=== PATIENT | female | born 1995 | race American Indian/Alaskan Native ===

== ENCOUNTER 2021-01-04 17:15 | Emergency (ER) | payer OTHER, MEDICAID ==
[2021-01-04] MEDS ORDERED: Lidocaine 1% with EPINEPHrine 1:200,000 30 ML SDV INJECT ONE (17:38)
[2021-01-04] MEDS ORDERED: Acetaminophen/HYDROcodone 325-5 MG Tab ONE (18:00)
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
== END 2021-01-04 19:40 | disposition home or self-care (01) ==
LOC: LB.ED 17:15
DX: S42.025A Nondisplaced fracture of shaft of left clavicle, initial encounter for closed fracture (principal); S01.01XA Laceration without foreign body of scalp, initial encounter; V86.99XA Unspecified occupant of other special all-terrain or other off-road motor vehicle injured in nontraffic accident, initial encounter; Y92.410 Unspecified street and highway as the place of occurrence of the external cause
CPT/HCPCS: 12002; 36415; 70450; 71250; 72125; 73000; 74176; 80053; 85025; 99284; A9270

== ENCOUNTER 2022-07-30 20:43 | Emergency (ER) | payer MEDICAID ==
[2022-07-30] MEDS: Metoprolol Tartrate 50 MG Tab PO ONE (21:35)
[2022-07-30] MEDS: Metoprolol Tartrate 50 MG Tab ONE (21:48)
== END 2022-07-30 22:20 | disposition home or self-care (01) ==
LOC: LB.ED 20:43 → SUPCPDRO 20:43 → LB.ED 22:20
DX: I10 Essential (primary) hypertension (principal)
CPT/HCPCS: 36415; 80053; 81001; 84550; 85025; 85610; 85730; 99283; A9270-GY

== ENCOUNTER 2022-07-31 22:20 | Emergency (ER) | payer MEDICAID ==
[2022-07-31] MEDS: LORazepam 1 MG Tab PO ONE (22:44)
[2022-07-31] MEDS: Aspirin 81 MG Tab.Chew PO ONE (22:54)
[2022-07-31] MEDS: LORazepam 1 MG Tab ONE (22:55)
[2022-07-31] MEDS: Metoprolol Tartrate 50 MG Tab PO ONE (23:02)
[2022-07-31] MEDS: Metoprolol Tartrate 50 MG Tab ONE (23:09)
[2022-07-31] MEDS ORDERED: LORazepam 1 MG Tab ONE ×2 (23:30→23:49)
== END 2022-07-31 23:45 | disposition home or self-care (01) ==
LOC: LB.ED 22:20
DX: I10 Essential (primary) hypertension (principal); F41.9 Anxiety disorder, unspecified
CPT/HCPCS: 36415; 71045; 80053; 81001; 84484; 85025; 93005; 99285; A9270-GY